=== PATIENT | male | born 1950 | race Caucasian/White ===

== ENCOUNTER → 2017-12-09 | Outpatient (REF) | payer MEDICARE, OTHER ==
[2017-12-09 12:51] LABS: BASO # 0.1 10^3/uL (0.0-0.2); BASO % 0.8 % (0.0-1.0); EOS # 0.2 10^3/uL (0.0-0.50); EOS % 3.2 % (0.0-3.0); HEMATOCRIT 42.1 % (42.0-52.0); HEMOGLOBIN 14.9 g/dl (13.5-17.5); IMMATURE GRANULOCYTE % 0.3 % (0-3.0); LYMPH # 1.7 10^3/uL (1.5-4.5); LYMPH % 22.9 % (24.0-44.0); MEAN CORPUSCULAR HEMOGLOBIN 32.8 pg (27.0-33.0); MEAN CORPUSCULAR HGB CONC 35.4 g/dl (32.0-36.5); MEAN CORPUSCULAR VOLUME 92.7 fl (80.0-96.0); MONO # 0.9 10^3/uL (0.0-0.8); MONO % 12.1 % (0.0-5.0); NEUTROPHILS # 4.4 10^3/uL (1.8-7.7); NEUTROPHILS % 60.7 % (36.0-66.0); PLATELET COUNT, AUTOMATED 208 10^3/uL (150-450); RED BLOOD COUNT 4.54 10^6/uL (4.30-6.10); WHITE BLOOD COUNT 7.3 10^3/uL (4.0-10.0)
[2017-12-09 13:20] LABS: FOLATE > 24.0 NG/ML; VITAMIN B12 LEVEL 669 PG/ML
[2017-12-09 13:27] LABS: TOTAL 25(OH) VITAMIN D 36.1 NG/ML (30.0-100.0)
[2017-12-09 13:57] LABS: HEPATITIS C VIRUS ABY INDEX < 0.0 INDEX (<0.8)
[2017-12-11 00:06] LABS: TESTOSTERONE FREE (DIRECT) 3.9 pg/mL (6.6-18.1)
== END ==
LOC: M LABDRAW1 10:50
DX: Z00.00 Encounter for general adult medical examination without abnormal findings (principal); R53.83 Other fatigue
CPT/HCPCS: 82746

== ENCOUNTER → 2021-12-28 | Outpatient (REF) | payer MEDICARE, OTHER | LOC: M LAB REF 16:06 | PROVIDERS: ATTEND Surgery | DX: D17.1 Benign lipomatous neoplasm of skin and subcutaneous tissue of trunk (principal) ==

== ENCOUNTER 2024-11-28 13:35 | Emergency (ER) | payer MEDICARE, OTHER ==
[~2024-11-28] VITALS: Ht 175.3 cm; Wt 97.1 kg
[2024-11-28] MEDS ORDERED: ISOVUE-370 76% 100ML VIAL As Ordered ONE (13:49)
[2024-11-28] MEDS ORDERED: TRAM50TA2 PO (13:51)
[2024-11-28] MEDS ORDERED: LOPR1TAB6 PO (13:51)
[2024-11-28 14:25] LABS: BASO # 0.1 10^3/uL (0.0-0.2); BASO % 0.4 % (0.0-1.0); EOS # 0.1 10^3/uL (0.0-0.5); EOS % 0.8 % (0.0-3.0); HEMATOCRIT 41.9 % (42.0-52.0); HEMOGLOBIN 14.7 g/dl (13.5-17.5); LYMPH # 1.7 10^3/uL (1.5-5.0); LYMPH % 11.5 % (24.0-44.0); MEAN CORPUSCULAR HGB CONC 35.1 g/dl (32.0-36.5); MEAN CORPUSCULAR VOLUME 91.3 fl (80.0-96.0); MONO # 1.1 10^3/uL (0.0-0.8); MONO % 7.7 % (2.0-8.0); NEUTROPHILS # 11.8 10^3/uL (1.5-8.5); NEUTROPHILS % 79.1 % (36.0-66.0); PLATELET COUNT, AUTOMATED 202 10^3/uL (150-450); RED BLOOD COUNT 4.59 10^6/uL (4.30-6.10); WHITE BLOOD COUNT 14.9 10^3/uL (4.0-10.0)
[2024-11-28 14:39] LABS: INR 0.98; PARTIAL THROMBOPLASTIN TIME 26.2 SECONDS (24.8-34.2); PROTHROMBIN TIME 13.3 SECONDS (12.5-14.5)
[2024-11-28 14:53] LABS: CK-MB VALUE MASS 5.9 NG/ML (<3.6); ETHYL ALCOHOL (ETHANOL) < 0.003 % (0.000-0.010); LIPASE 36 U/L (12-53)
[2024-11-28 14:55] LABS: ALBUMIN 4.1 G/DL (3.2-5.2); ALKALINE PHOSPHATASE 69 U/L (40-129); ALT/SGPT 36 U/L (7.0-40); AMYLASE 99 U/L (30-118); AST/SGOT 40 U/L (<34); BILIRUBIN,DIRECT 0.2 MG/DL (<0.4); BILIRUBIN,TOTAL 0.5 MG/DL (0.3-1.2); BLOOD UREA NITROGEN 29 MG/DL (9-23); CALCIUM LEVEL 9.1 MG/DL (8.3-10.6); CARBON DIOXIDE LEVEL 25 MMOL/L (20-31); CHLORIDE LEVEL 107 MMOL/L (98-107); CPK CREATINE PHOSPHOKINASE 376 U/L (46-171); CREATININE FOR GFR 1.17 MG/DL (0.70-1.30); GLUCOSE, FASTING 150 MG/DL (74-106); MB/CK RELATIVE INDEX 1.56 (< OR =4); POTASSIUM SERUM 4.4 MMOL/L (3.5-5.1); SODIUM LEVEL 141 MMOL/L (136-145)
[2024-11-28 16:12] VITALS: BP 167/98; TEMP 97.5; O2SAT 95
[2024-11-28] MEDS: propofoL 200 MG/20 ML VIAL IV.PROC PRN (16:19)
[2024-11-28] MEDS: PANTOPRAZOLE 40MG VIAL IV STA (16:20)
[2024-11-28] MEDS: NS (Normal Saline) 0.9% 1,000 ML IV SCH (16:23)
== END 2024-11-28 16:25 | disposition short-term general hospital (02) ==
LOC: EDBD 13:35 → M ED 13:35
DX: S02.32XA Fracture of orbital floor, left side, initial encounter for closed fracture (principal); S02.40DA Maxillary fracture, left side, initial encounter for closed fracture; S02.40FA Zygomatic fracture, left side, initial encounter for closed fracture; S04.019 Injury of optic nerve, unspecified eye; S22.42XA Multiple fractures of ribs, left side, initial encounter for closed fracture; S43.005A Unspecified dislocation of left shoulder joint, initial encounter; S51.012A Laceration without foreign body of left elbow, initial encounter; W11.XXXA Fall on and from ladder, initial encounter; Y92.009 Unspecified place in unspecified non-institutional (private) residence as the place of occurrence of the external cause; Y93.9 Activity, unspecified; Y99.9 Unspecified external cause status; I10 Essential (primary) hypertension; K21.9 Gastro-esophageal reflux disease without esophagitis; M85.88 Other specified disorders of bone density and structure, other site; M43.16 Spondylolisthesis, lumbar region
CPT/HCPCS: 12001; 23655; 70450; 70486; 71045; 71260; 72125; 72128; 72131; 73020; 73030; 73080; 73200; 74177; 80047; 80048; 80076; 82077; 82150; 82550; 82553; 83605; 83690; 84484; 85025; 85610; 85730; 93005; 93041; 94760; 96374; 99285; J2470; Q9967